=== PATIENT | male | born 1930 | race Asian ===

== ENCOUNTER 2018-09-03 07:44 | Inpatient (IN) | payer MEDICARE, BC ==
[~2018-09-03] VITALS: Ht 160 cm; Wt 66.7 kg
[2018-09-03] MEDS: ACETYLCYSTEINE 100MG/ML 10% VIAL 4ML INH SCH ×2 (00:23→14:00)
[2018-09-03 08:49] LABS: HEMATOCRIT. 34.9 % (42.0-52.0); HEMOGLOBIN. 11.9 g/dL (14.0-18.0); MEAN CORPUSCULAR HEMOGLOBIN 33.6 pg (28.0-32.0); MEAN CORPUSCULAR VOLUME 98.8 fL (80.0-94.0); MEAN PLATELET VOLUME 7.7 fl (7.4-10.4); PLATELET 293 x1000/uL (130-400); RED BLOOD CELL COUNT 3.54 mill/uL (4.7-6.1); RED CELL DISTRIBUTION WIDTH 20.6 % (11.6-14.6)
[2018-09-03 09:45] LABS: PLATELET ESTIMATE NORMAL
[2018-09-03 09:47] LABS: CHLORIDE 89 mEq/L (98-107)
[2018-09-03] MEDS ORDERED: SODIUM CHLORIDE 0.9% 1000ML BAG (SEPSIS BOLUS) IV ONE (10:45)
[2018-09-03] MEDS ORDERED: LEVOFLOXACIN 750MG PREMIX 150 ML IV ONE (10:45)
[2018-09-03] MEDS ORDERED: PIPERACILLIN/TAZ 3.375G PREMIX 50 ML IV SCH (12:45)
[2018-09-03] MEDS: IPRATROPIUM BROMIDE (0.02%) 0.5MG/2.5ML NEB HHN SCH ×2 (12:45→21:38)
[2018-09-03] MEDS ORDERED: PIPERACILLIN/TAZ 3.375G PREMIX 50 ML IV NR (13:00)
[2018-09-03 13:23] LABS: BG BASE EXCESS 0.8 mmol/L (-2.0-2.0); BG BILEVEL POS AIRWAY PRESSURE 15/5; BG CARBOXYHEMOGLOBIN 0.2 % (0.5-1.5); BG DEOXYHEMOGLOBIN 2.5 % (0.0-5.0); BG FRACTION INSPIRED OXYGEN 70; BG HCO3 ACT 25.1 mmol/L (22.0-26.0); BG METHEMOGLOBIN 0.3 % (0.0-1.5); BG OXYGEN SATURATION 97.5 % (92.0-98.5); BG PCO2 39.1 mmHg (35.0-45.0); BG PH 7.426 (7.350-7.450); BG PO2 114.8 mmHg (75.0-100.0); BG SAMPLE SITE LEFT BRACHIAL; BG TOTAL HEMOGLOBIN 11.1 g/dL (12.0-18.0); BG VENT MODE MASK - BIPAP; BG VENT RATE 18 set
[2018-09-03] MEDS ORDERED: ACETAMINOPHEN 325MG TABLET PO ONE (14:00)
[2018-09-03] MEDS ORDERED: IOHEXOL-350 100 ML BOTTLE ONE (14:59)
[2018-09-03 16:13] LABS: CLARITY URINE CLEAR (CLEAR); COLOR URINE YELLOW (YELLOW); KETONES URINE NEGATIVE (NEGATIVE); LEUKOCYTE ESTERASE URINE NEGATIVE (NEGATIVE); NITRITE URINE NEGATIVE (NEGATIVE); OCCULT BLOOD URINE 1+ (NEGATIVE); PROTEIN URINE 1+ (NEGATIVE); SPECIFIC GRAVITY URINE 1.056 (1.005-1.030)
[2018-09-03 16:26] LABS: INR 1.3; PROTHROMBIN TIME 12.7 sec (9.1-11.1)
[2018-09-03] MEDS ORDERED: ONDANSETRON HCL 4MG/2ML INJ IV PRN (17:15)
[2018-09-03] MEDS ORDERED: DOCUSATE SODIUM 100MG CAPSULE PO PRN (17:15)
[2018-09-03] MEDS ORDERED: IPRATROPIUM/ALBUTEROL 0.5-3(2.5)MG/3ML NEB INH PRN (17:15)
[2018-09-03] MEDS ORDERED: LORAZEPAM 0.5MG TABLET PO PRN (17:15)
[2018-09-03] MEDS ORDERED: CLONIDINE 0.1MG TABLET PO PRN (17:15)
[2018-09-03] MEDS ORDERED: HYDROCODONE/ACETAMINOPHEN 5/325MG TABLET PO PRN (17:15)
[2018-09-03] MEDS: SODIUM CHLORIDE 0.9% 1,000 ML IV SCH (17:53)
[2018-09-03] MEDS ORDERED: POTASSIUM CHLORIDE INJ 40 MEQ in DEXT 5% WATER 250 ML IV NR (18:00)
[2018-09-03 18:27] LABS: VITAMIN B12 SERUM 990 pg/mL (211-911)
[2018-09-03 18:30] LABS: PHOSPHORUS 2.9 mg/dL (2.5-4.9)
[2018-09-03 18:38] LABS: FOLIC ACID (FOLATE) SERUM > 20.00 ng/mL (>5.38)
[2018-09-03 19:21] LABS: FERRITIN 1569 ng/mL (22-322)
[2018-09-03] MEDS ORDERED: MIDODRINE HCL 5MG TABLET PO NR (20:00)
[2018-09-04] VITALS (24 sets, daily range): BP systolic 63–150; BP diastolic 30–104
[2018-09-04] MEDS: IPRATROPIUM BROMIDE (0.02%) 0.5MG/2.5ML NEB HHN SCH ×5 (00:16→20:16)
[2018-09-04] MEDS ORDERED: MORPHINE SULFATE 4 MG/ML CPJ (NOT FOR IM USE) IV PRN (00:45)
[2018-09-04] MEDS: LORAZEPAM 2MG/ML CPJ IV PRN ×2 (02:15→06:33)
[2018-09-04] MEDS: ACETAMINOPHEN 325MG TABLET PO PRN ×2 (04:06→12:51)
[2018-09-04] MEDS ORDERED: PIPERACILLIN/TAZ 3.375G PREMIX 50 ML IV NR (05:00)
[2018-09-04] MEDS ORDERED: MIDODRINE HCL 5MG TABLET PO NR (06:00)
[2018-09-04 06:42] LABS: HEMATOCRIT. 25.5 % (42.0-52.0); HEMOGLOBIN. 8.5 g/dL (14.0-18.0); MEAN CORPUSCULAR HEMOGLOBIN 33.1 pg (28.0-32.0); MEAN CORPUSCULAR VOLUME 99.2 fL (80.0-94.0); MEAN PLATELET VOLUME 6.7 fl (7.4-10.4); PLATELET 127 x1000/uL (130-400); RED BLOOD CELL COUNT 2.57 mill/uL (4.7-6.1); RED CELL DISTRIBUTION WIDTH 20.5 % (11.6-14.6)
[2018-09-04 06:49] LABS: CHLORIDE 105 mEq/L (98-107)
[2018-09-04 07:32] LABS: PLATELET ESTIMATE SLIGHTLY DECREASED
[2018-09-04] MEDS ORDERED: MIDODRINE HCL 5MG TABLET PO SCH (09:00)
[2018-09-04] MEDS ORDERED: PHENYLEPHRINE 40 MG in DEXT 5% WATER 246 ML IV PRN (11:30)
[2018-09-04] MEDS ORDERED: LORAZEPAM 2MG/ML CPJ IV ONE (12:00)
[2018-09-04 12:22] LABS: BG BASE EXCESS -5.9 mmol/L (-2.0-2.0); BG CARBOXYHEMOGLOBIN 0.5 % (0.5-1.5); BG HCO3 ACT 19.9 mmol/L (22.0-26.0); BG METHEMOGLOBIN 0.3 % (0.0-1.5); BG OXYHEMOGLOBIN 98.2 % (94.0-97.0); BG PCO2 40.5 mmHg (35.0-45.0); BG PO2 283.4 mmHg (75.0-100.0); BG SAMPLE SITE RIGHT BRACHIAL; BG TIDAL VOLUME(mL) 500 mL; BG TOTAL HEMOGLOBIN 10.4 g/dL (12.0-18.0); BG VENT MODE VENT - A/C; BG VENT RATE 16 set
[2018-09-04] MEDS ORDERED: LIDOCAINE HCL 1% 20ML VIAL (Pyxis) INJ ONE (13:33)
[2018-09-04] MEDS ORDERED: VECURONIUM BROMIDE 10 MG/VIAL IV ONE (14:07)
[2018-09-04] MEDS ORDERED: SODIUM CHLORIDE 0.9% 10ML VIAL ONE (14:07)
[2018-09-04] MEDS ORDERED: SUCCINYLCHOLINE CHLORIDE 200MG/10ML IV ONE (14:07)
[2018-09-04] MEDS ORDERED: ETOMIDATE 2MG/ML 10ML VIAL IV ONE (14:07)
[2018-09-04] MEDS ORDERED: MEROPENEM 1 GM XX SCH (14:15)
[2018-09-04] MEDS: PHENYLEPHRINE 40 MG in DEXT 5% WATER 246 ML IV PRN ×3 (15:00→19:25)
[2018-09-04] MEDS: PROPOFOL 10MG/ML 100ML 100 ML IV PRN ×2 (16:45→19:27)
[2018-09-04] MEDS: MIDODRINE HCL 5MG TABLET PO SCH (18:30)
[2018-09-04] MEDS ORDERED: VANCOMYCIN 1250MG in DEXTROSE 5% WATER 250ML IV NR (20:30)
[2018-09-04] MEDS ORDERED: PHENYLEPHRINE 80 MG in DEXT 5% WATER 492 ML IV STA (21:47)
[2018-09-04] MEDS: SODIUM CHLORIDE 0.9% 1,000 ML IV SCH (22:24)
[2018-09-04] MEDS: MEROPENEM 1000MG in NORMAL SALINE 100ML IV SCH (22:27)
[2018-09-05] VITALS (121 sets, daily range): BP systolic 63–165; BP diastolic 18–86
[2018-09-05] MEDS: IPRATROPIUM BROMIDE (0.02%) 0.5MG/2.5ML NEB HHN SCH ×7 (00:11→23:59)
[2018-09-05] MEDS: ACETYLCYSTEINE 100MG/ML 10% VIAL 4ML INH SCH ×3 (00:12→16:30)
[2018-09-05] MEDS: PHENYLEPHRINE 80 MG in DEXT 5% WATER 492 ML IV PRN ×3 (00:48→11:09)
[2018-09-05] MEDS: PROPOFOL 10MG/ML 100ML 100 ML IV PRN (04:03)
[2018-09-05] MEDS: MEROPENEM 1000MG in NORMAL SALINE 100ML IV SCH ×3 (06:00→22:00)
[2018-09-05 06:16] LABS: HEMATOCRIT. 25.7 % (42.0-52.0); HEMOGLOBIN. 8.6 g/dL (14.0-18.0); MEAN CORPUSCULAR HEMOGLOBIN 33.5 pg (28.0-32.0); MEAN CORPUSCULAR VOLUME 99.6 fL (80.0-94.0); PLATELET 122 x1000/uL (130-400); RED BLOOD CELL COUNT 2.58 mill/uL (4.7-6.1)
[2018-09-05 08:20] LABS: BG BASE EXCESS -6.5 mmol/L (-2.0-2.0); BG CARBOXYHEMOGLOBIN 0.3 % (0.5-1.5); BG DEOXYHEMOGLOBIN 6.2 % (0.0-5.0); BG FRACTION INSPIRED OXYGEN 60; BG HCO3 ACT 18.5 mmol/L (22.0-26.0); BG METHEMOGLOBIN 0.3 % (0.0-1.5); BG OXYGEN SATURATION 93.8 % (92.0-98.5); BG OXYHEMOGLOBIN 93.2 % (94.0-97.0); BG PCO2 34.9 mmHg (35.0-45.0); BG PH 7.343 (7.350-7.450); BG PO2 73.6 mmHg (75.0-100.0); BG SAMPLE SITE RIGHT BRACHIAL; BG TIDAL VOLUME(mL) 500 mL; BG TOTAL HEMOGLOBIN 10.2 g/dL (12.0-18.0); BG VENT MODE VENT - A/C; BG VENT RATE 16 set
[2018-09-05 08:23] LABS: PLATELET ESTIMATE SLIGHTLY DECREASED
[2018-09-05] MEDS: NOREPINEPHRINE 32 MG in DEXT 5% WATER 468 ML IV PRN ×2 (08:30→09:07)
[2018-09-05] MEDS: PANTOPRAZOLE SODIUM 40 MG/VIAL IV SCH (09:52)
[2018-09-05] MEDS: SODIUM CHLORIDE 0.9% 1,000 ML IV SCH (09:53)
[2018-09-05] MEDS: ACETAMINOPHEN 325MG TABLET PO PRN (12:04)
[2018-09-05] MEDS ORDERED: VANCOMYCIN 750 MG PREMIX 150 ML IV SCH (13:00)
[2018-09-05] MEDS ORDERED: PROPOFOL 10MG/ML 100ML 100 ML IV PRN (17:15)
[2018-09-06] VITALS (72 sets, daily range): BP systolic 69–171; BP diastolic 15–112
[2018-09-06] MEDS: IPRATROPIUM BROMIDE (0.02%) 0.5MG/2.5ML NEB HHN SCH ×5 (04:12→20:23)
[2018-09-06] MEDS: SODIUM CHLORIDE 0.9% 1,000 ML IV SCH ×2 (05:02→21:27)
[2018-09-06] MEDS: MEROPENEM 1000MG in NORMAL SALINE 100ML IV SCH (06:32)
[2018-09-06 06:58] LABS: HEMATOCRIT. 27.1 % (42.0-52.0); MEAN CORPUSCULAR HEMOGLOBIN 33.1 pg (28.0-32.0); MEAN CORPUSCULAR VOLUME 99.3 fL (80.0-94.0); MEAN PLATELET VOLUME 7.9 fl (7.4-10.4); PLATELET 62 x1000/uL (130-400); RED BLOOD CELL COUNT 2.73 mill/uL (4.7-6.1); RED CELL DISTRIBUTION WIDTH 20.8 % (11.6-14.6)
[2018-09-06 07:39] LABS: PLATELET ESTIMATE DECREASED
[2018-09-06] MEDS ORDERED: PROPOFOL 10MG/ML 100ML 100 ML IV PRN (08:30)
[2018-09-06 08:53] LABS: BG CARBOXYHEMOGLOBIN 0.5 % (0.5-1.5); BG DEOXYHEMOGLOBIN 7.5 % (0.0-5.0); BG FRACTION INSPIRED OXYGEN 40; BG HCO3 ACT 16.1 mmol/L (22.0-26.0); BG METHEMOGLOBIN 0.3 % (0.0-1.5); BG OXYGEN SATURATION 92.4 % (92.0-98.5); BG OXYHEMOGLOBIN 91.7 % (94.0-97.0); BG PCO2 28.1 mmHg (35.0-45.0); BG PH 7.376 (7.350-7.450); BG PO2 68.9 mmHg (75.0-100.0); BG SAMPLE SITE LEFT RADIAL; BG TIDAL VOLUME(mL) 500 mL; BG TOTAL HEMOGLOBIN 9.4 g/dL (12.0-18.0); BG VENT MODE VENT - A/C; BG VENT RATE 16 set
[2018-09-06] MEDS ORDERED: VANCOMYCIN 1 G PREMIX 200 ML IV SCH (09:00)
[2018-09-06] MEDS: ACETYLCYSTEINE 100MG/ML 10% VIAL 4ML INH SCH ×3 (09:05→15:53)
[2018-09-06] MEDS: PANTOPRAZOLE SODIUM 40 MG/VIAL IV SCH (10:38)
[2018-09-06] MEDS: MIDODRINE HCL 5MG TABLET PO SCH ×3 (10:38→17:19)
[2018-09-06] MEDS ORDERED: ALBUMIN HUMAN 25GM/100ML (25%) IV NR (13:15)
[2018-09-06] MEDS: PHENYLEPHRINE 80 MG in DEXT 5% WATER 492 ML IV PRN ×2 (14:46→21:26)
[2018-09-06 15:35] LABS: CREATINE KINASE 1264 IU/L (39-308)
[2018-09-06] MEDS: MEROPENEM 500MG in NORMAL SALINE 50ML IV SCH (17:19)
[2018-09-06] MEDS ORDERED: DIGOXIN 500MCG/2ML AMP ONE (18:56)
[2018-09-06] MEDS ORDERED: DIGOXIN 500MCG/2ML AMP IV NR (19:00)
[2018-09-06] MEDS ORDERED: AMIODARONE HCL 200 MG TABLET NG NR (19:00)
[2018-09-06] MEDS ORDERED: AMIODARONE HCL 150 MG in DEXT 5% WATER 100 ML IV NR (21:30)
[2018-09-06] MEDS: DIGOXIN 500MCG/2ML AMP IV SCH (22:43)
[2018-09-07] VITALS (96 sets, daily range): BP systolic 78–171; BP diastolic 42–83
[2018-09-07] MEDS: IPRATROPIUM BROMIDE (0.02%) 0.5MG/2.5ML NEB HHN SCH ×6 (00:14→20:32)
[2018-09-07] MEDS: ACETYLCYSTEINE 100MG/ML 10% VIAL 4ML INH SCH ×4 (00:15→16:34)
[2018-09-07 01:53] LABS: CLARITY URINE CLOUDY (CLEAR); COLOR URINE DARK YELLOW (YELLOW); KETONES URINE NEGATIVE (NEGATIVE); LEUKOCYTE ESTERASE URINE NEGATIVE (NEGATIVE); NITRITE URINE NEGATIVE (NEGATIVE); OCCULT BLOOD URINE 2+ (NEGATIVE); PH URINE 5.5 (4.5-8.0); PROTEIN URINE 2+ (NEGATIVE); SPECIFIC GRAVITY URINE 1.015 (1.005-1.030)
[2018-09-07] MEDS: DIGOXIN 500MCG/2ML AMP IV SCH (03:44)
[2018-09-07] MEDS: AMIODARONE HCL 200 MG TABLET NG SCH ×3 (03:44→18:50)
[2018-09-07] MEDS: MEROPENEM 500MG in NORMAL SALINE 50ML IV SCH ×2 (05:37→17:14)
[2018-09-07] MEDS: PHENYLEPHRINE 80 MG in DEXT 5% WATER 492 ML IV PRN (05:38)
[2018-09-07 06:50] LABS: PHOSPHORUS 5.1 mg/dL (2.5-4.9)
[2018-09-07 06:58] LABS: HEMATOCRIT. 29.1 % (42.0-52.0); HEMOGLOBIN. 9.8 g/dL (14.0-18.0); MEAN CORPUSCULAR HEMOGLOBIN 33.5 pg (28.0-32.0); MEAN PLATELET VOLUME 6.9 fl (7.4-10.4); RED BLOOD CELL COUNT 2.91 mill/uL (4.7-6.1); RED CELL DISTRIBUTION WIDTH 21.1 % (11.6-14.6)
[2018-09-07 07:42] LABS: PLATELET 37 x1000/uL (130-400)
[2018-09-07] MEDS ORDERED: NOREPINEPHRINE 32 MG in SODIUM CHLORIDE 0.9% 468 ML IV PRN (08:15)
[2018-09-07] MEDS ORDERED: PROPOFOL 10MG/ML 100ML 100 ML IV PRN (08:15)
[2018-09-07 08:41] LABS: BG BASE EXCESS -10.9 mmol/L (-2.0-2.0); BG CARBOXYHEMOGLOBIN 0.5 % (0.5-1.5); BG DEOXYHEMOGLOBIN 6.8 % (0.0-5.0); BG FRACTION INSPIRED OXYGEN 40; BG HCO3 ACT 15.8 mmol/L (22.0-26.0); BG METHEMOGLOBIN 0.2 % (0.0-1.5); BG OXYGEN SATURATION 93.2 % (92.0-98.5); BG OXYHEMOGLOBIN 92.5 % (94.0-97.0); BG PCO2 38.2 mmHg (35.0-45.0); BG PH 7.234 (7.350-7.450); BG PO2 78.9 mmHg (75.0-100.0); BG SAMPLE SITE LEFT RADIAL; BG TIDAL VOLUME(mL) 500 mL; BG VENT MODE VENT - A/C; BG VENT RATE 16 set
[2018-09-07] MEDS: PANTOPRAZOLE SODIUM 40 MG/VIAL IV SCH (08:58)
[2018-09-07] MEDS: MIDODRINE HCL 5MG TABLET PO SCH ×3 (08:58→17:14)
[2018-09-07] MEDS ORDERED: SODIUM CHLORIDE 3% 500 ML IV NR (09:00)
[2018-09-07] MEDS ORDERED: MAGNESIUM 4 G PREMIX 100 ML IV NR (09:00)
[2018-09-07] MEDS ORDERED: SODIUM BICARBONATE 8.4% 1 MEQ/ML 50ML SYR IV NR (09:15)
[2018-09-07 09:42] LABS: PLATELET ESTIMATE MARKEDLY DECREASED
[2018-09-07] MEDS: PHENYLEPHRINE 80 MG in SODIUM CHLORIDE 0.9% 492 ML IV PRN ×2 (10:32→18:16)
[2018-09-07] MEDS: DIGOXIN 125MCG TABLET PO SCH (17:14)
[2018-09-08] VITALS (100 sets, daily range): BP systolic 104–156; BP diastolic 35–76
[2018-09-08] MEDS: IPRATROPIUM BROMIDE (0.02%) 0.5MG/2.5ML NEB HHN SCH ×7 (00:46→23:51)
[2018-09-08] MEDS: SODIUM CHLORIDE 0.9% 1,000 ML IV SCH ×3 (01:50→13:20)
[2018-09-08] MEDS: AMIODARONE HCL 200 MG TABLET NG SCH ×3 (02:01→18:38)
[2018-09-08] MEDS: PHENYLEPHRINE 80 MG in SODIUM CHLORIDE 0.9% 492 ML IV PRN ×3 (02:02→16:53)
[2018-09-08] MEDS ORDERED: PROPOFOL 10MG/ML 100ML 100 ML IV PRN (05:00)
[2018-09-08] MEDS: MEROPENEM 500MG in NORMAL SALINE 50ML IV SCH ×2 (05:18→16:58)
[2018-09-08 05:36] LABS: HEMATOCRIT. 26.5 % (42.0-52.0); HEMOGLOBIN. 8.9 g/dL (14.0-18.0); MEAN CORPUSCULAR HEMOGLOBIN 33.2 pg (28.0-32.0); MEAN CORPUSCULAR VOLUME 99.1 fL (80.0-94.0); MEAN PLATELET VOLUME 7.3 fl (7.4-10.4); RED BLOOD CELL COUNT 2.67 mill/uL (4.7-6.1); RED CELL DISTRIBUTION WIDTH 21.1 % (11.6-14.6)
[2018-09-08 05:49] LABS: INR 1.1; PROTHROMBIN TIME 11.5 sec (9.1-11.1)
[2018-09-08 05:50] LABS: PHOSPHORUS 4.8 mg/dL (2.5-4.9)
[2018-09-08] MEDS: ACETYLCYSTEINE 100MG/ML 10% VIAL 4ML INH SCH ×3 (06:00→23:51)
[2018-09-08 06:05] LABS: PLATELET 20 x1000/uL (130-400)
[2018-09-08] MEDS: MIDODRINE HCL 5MG TABLET PO SCH ×3 (08:34→17:00)
[2018-09-08] MEDS: PANTOPRAZOLE SODIUM 40 MG/VIAL IV SCH (08:34)
[2018-09-08 09:11] LABS: BG BASE EXCESS -9.2 mmol/L (-2.0-2.0); BG CARBOXYHEMOGLOBIN 0.3 % (0.5-1.5); BG DEOXYHEMOGLOBIN 5.8 % (0.0-5.0); BG FRACTION INSPIRED OXYGEN 40; BG HCO3 ACT 16.4 mmol/L (22.0-26.0); BG METHEMOGLOBIN 1.3 % (0.0-1.5); BG OXYGEN SATURATION 94.1 % (92.0-98.5); BG OXYHEMOGLOBIN 92.6 % (94.0-97.0); BG PCO2 34.7 mmHg (35.0-45.0); BG PH 7.293 (7.350-7.450); BG PO2 84.7 mmHg (75.0-100.0); BG SAMPLE SITE RIGHT RADIAL; BG TIDAL VOLUME(mL) 500 mL; BG TOTAL HEMOGLOBIN 8.8 g/dL (12.0-18.0); BG VENT MODE VENT - A/C; BG VENT RATE 20 set
[2018-09-08] MEDS ORDERED: LORAZEPAM 2MG/ML CPJ IV PRN (10:30)
[2018-09-08 12:13] LABS: PLATELET ESTIMATE MARKEDLY DECREASED
[2018-09-08] MEDS: DIGOXIN 125MCG TABLET PO SCH (17:00)
[2018-09-08] MEDS: CLINDAMYCIN 600 MG in DEXTROSE 5% WATER 50 ML IV SCH (21:10)
[2018-09-08] MEDS: FAMOTIDINE 20MG/2ML VIAL IV SCH (21:10)
[2018-09-09] VITALS (97 sets, daily range): BP systolic 91–146; BP diastolic 31–92
[2018-09-09] MEDS: PHENYLEPHRINE 80 MG in SODIUM CHLORIDE 0.9% 492 ML IV PRN (00:42)
[2018-09-09] MEDS: AMIODARONE HCL 200 MG TABLET NG SCH ×3 (02:31→21:02)
[2018-09-09] MEDS: IPRATROPIUM BROMIDE (0.02%) 0.5MG/2.5ML NEB HHN SCH ×4 (03:47→20:15)
[2018-09-09] MEDS: CLINDAMYCIN 600 MG in DEXTROSE 5% WATER 50 ML IV SCH ×3 (04:40→21:02)
[2018-09-09 05:05] LABS: BG BASE EXCESS -10.4 mmol/L (-2.0-2.0); BG CARBOXYHEMOGLOBIN 0.5 % (0.5-1.5); BG DEOXYHEMOGLOBIN 5.8 % (0.0-5.0); BG FRACTION INSPIRED OXYGEN 40; BG HCO3 ACT 16.1 mmol/L (22.0-26.0); BG METHEMOGLOBIN 0.3 % (0.0-1.5); BG OXYGEN SATURATION 94.2 % (92.0-98.5); BG OXYHEMOGLOBIN 93.4 % (94.0-97.0); BG PH 7.244 (7.350-7.450); BG PO2 84.5 mmHg (75.0-100.0); BG SAMPLE SITE RIGHT RADIAL; BG TIDAL VOLUME(mL) 500 mL; BG TOTAL HEMOGLOBIN 8.4 g/dL (12.0-18.0); BG VENT MODE VENT - A/C; BG VENT RATE 24 set
[2018-09-09] MEDS ORDERED: SODIUM BICARBONATE 8.4% 1 MEQ/ML 50ML SYR IV ONE (05:30)
[2018-09-09] MEDS ORDERED: SODIUM BICARBONATE 8.4% 1 MEQ/ML 50ML SYR IV SCH (05:45)
[2018-09-09 05:49] LABS: PHOSPHORUS 4.8 mg/dL (2.5-4.9)
[2018-09-09] MEDS: ACETYLCYSTEINE 100MG/ML 10% VIAL 4ML INH SCH ×2 (07:18→15:20)
[2018-09-09] MEDS: IPRATROPIUM/ALBUTEROL 0.5-3(2.5)MG/3ML NEB HHN PRN (07:18)
[2018-09-09 08:36] LABS: HEMATOCRIT. 23.8 % (42.0-52.0); HEMOGLOBIN. 7.9 g/dL (14.0-18.0); MEAN CORPUSCULAR HEMOGLOBIN 32.5 pg (28.0-32.0); MEAN CORPUSCULAR VOLUME 98.5 fL (80.0-94.0); RED BLOOD CELL COUNT 2.41 mill/uL (4.7-6.1); RED CELL DISTRIBUTION WIDTH 20.7 % (11.6-14.6)
[2018-09-09 08:42] LABS: BG BASE EXCESS -8.8 mmol/L (-2.0-2.0); BG CARBOXYHEMOGLOBIN 0.9 % (0.5-1.5); BG DEOXYHEMOGLOBIN 4.9 % (0.0-5.0); BG FRACTION INSPIRED OXYGEN 40; BG HCO3 ACT 16.8 mmol/L (22.0-26.0); BG METHEMOGLOBIN 0.3 % (0.0-1.5); BG OXYHEMOGLOBIN 93.9 % (94.0-97.0); BG PCO2 34.7 mmHg (35.0-45.0); BG PH 7.302 (7.350-7.450); BG PO2 85.8 mmHg (75.0-100.0); BG SAMPLE SITE LEFT BRACHIAL; BG TIDAL VOLUME(mL) 500 mL; BG TOTAL HEMOGLOBIN 8.6 g/dL (12.0-18.0); BG VENT MODE VENT - A/C; BG VENT RATE 28 set
[2018-09-09] MEDS: MIDODRINE HCL 5MG TABLET PO SCH ×3 (09:17→17:49)
[2018-09-09 10:51] LABS: PLATELET ESTIMATE MARKEDLY DECREASED
[2018-09-09 10:53] LABS: MEAN PLATELET VOLUME 8.8 fl (7.4-10.4); PLATELET 18 x1000/uL (130-400)
[2018-09-09] MEDS: CITRIC ACID/SODIUM CITRATE SOLN 30ML UDC PO SCH ×2 (13:01→17:49)
[2018-09-09] MEDS: DIGOXIN 125MCG TABLET PO SCH (17:48)
[2018-09-09 20:43] LABS: T4 FREE 0.94 ng/dL (0.76-1.46)
[2018-09-09] MEDS: FAMOTIDINE 20MG/2ML VIAL IV SCH (21:02)
[2018-09-09 21:11] LABS: VITAMIN B12 SERUM >2000 pg/mL pg/mL (211-911)
[2018-09-10] VITALS (88 sets, daily range): BP systolic 76–151; BP diastolic 36–93
[2018-09-10] MEDS: IPRATROPIUM BROMIDE (0.02%) 0.5MG/2.5ML NEB HHN SCH ×6 (00:07→20:48)
[2018-09-10] MEDS: AMIODARONE HCL 200 MG TABLET NG SCH ×4 (03:15→19:00)
[2018-09-10] MEDS: CLINDAMYCIN 600 MG in DEXTROSE 5% WATER 50 ML IV SCH ×3 (05:19→21:19)
[2018-09-10 05:37] LABS: BG BASE EXCESS -9.5 mmol/L (-2.0-2.0); BG FRACTION INSPIRED OXYGEN 40; BG HCO3 ACT 16.7 mmol/L (22.0-26.0); BG METHEMOGLOBIN 0.3 % (0.0-1.5); BG OXYGEN SATURATION 90.9 % (92.0-98.5); BG OXYHEMOGLOBIN 89.7 % (94.0-97.0); BG PCO2 37.4 mmHg (35.0-45.0); BG PH 7.268 (7.350-7.450); BG SAMPLE SITE LEFT RADIAL; BG TIDAL VOLUME(mL) 500 mL; BG VENT MODE VENT - A/C; BG VENT RATE 28 set
[2018-09-10 05:51] LABS: HEMOGLOBIN. 7.3 g/dL (14.0-18.0); MEAN CORPUSCULAR VOLUME 99.2 fL (80.0-94.0); MEAN PLATELET VOLUME 9.3 fl (7.4-10.4); RED BLOOD CELL COUNT 2.21 mill/uL (4.7-6.1); RED CELL DISTRIBUTION WIDTH 21.5 % (11.6-14.6)
[2018-09-10 06:07] LABS: PLATELET 15 x1000/uL (130-400)
[2018-09-10 08:00] LABS: PLATELET ESTIMATE MARKEDLY DECREASED
[2018-09-10] MEDS: CITRIC ACID/SODIUM CITRATE SOLN 30ML UDC PO SCH ×3 (09:29→19:08)
[2018-09-10] MEDS: MIDODRINE HCL 5MG TABLET PO SCH ×3 (09:29→19:00)
[2018-09-10 11:03] LABS: BG BASE EXCESS -9.8 mmol/L (-2.0-2.0); BG CARBOXYHEMOGLOBIN 0.8 % (0.5-1.5); BG DEOXYHEMOGLOBIN 5.8 % (0.0-5.0); BG FRACTION INSPIRED OXYGEN 60; BG HCO3 ACT 17.9 mmol/L (22.0-26.0); BG METHEMOGLOBIN 0.2 % (0.0-1.5); BG OXYGEN SATURATION 94.1 % (92.0-98.5); BG OXYHEMOGLOBIN 93.2 % (94.0-97.0); BG PCO2 48.7 mmHg (35.0-45.0); BG PH 7.182 (7.350-7.450); BG SAMPLE SITE LEFT RADIAL; BG TIDAL VOLUME(mL) 500 mL; BG TOTAL HEMOGLOBIN 7.6 g/dL (12.0-18.0); BG VENT MODE VENT - A/C; BG VENT RATE 20 set
[2018-09-10] MEDS: PHENYLEPHRINE 80 MG in SODIUM CHLORIDE 0.9% 492 ML IV PRN (15:51)
[2018-09-10 19:26] LABS: HEMATOCRIT 21.5 % (42.0-52.0); HEMOGLOBIN 7.1 g/dL (14.0-18.0)
[2018-09-10] MEDS: MORPHINE SULFATE 100 MG in DEXT 5% WATER 90 ML IV PRN (20:23)
[2018-09-10] MEDS: FAMOTIDINE 20MG/2ML VIAL IV SCH (21:18)
[2018-09-11] VITALS (62 sets, daily range): BP systolic 80–135; BP diastolic 35–62
[2018-09-11] MEDS: IPRATROPIUM BROMIDE (0.02%) 0.5MG/2.5ML NEB HHN SCH ×5 (00:41→16:00)
[2018-09-11] MEDS: PHENYLEPHRINE 80 MG in SODIUM CHLORIDE 0.9% 492 ML IV PRN (03:42)
[2018-09-11] MEDS: CLINDAMYCIN 600 MG in DEXTROSE 5% WATER 50 ML IV SCH ×3 (05:37→20:33)
[2018-09-11 06:32] LABS: HEMATOCRIT. 21.5 % (42.0-52.0); HEMOGLOBIN. 7.2 g/dL (14.0-18.0); MEAN CORPUSCULAR HEMOGLOBIN 33.2 pg (28.0-32.0); MEAN CORPUSCULAR VOLUME 99.6 fL (80.0-94.0); MEAN PLATELET VOLUME 11.6 fl (7.4-10.4); RED BLOOD CELL COUNT 2.16 mill/uL (4.7-6.1); RED CELL DISTRIBUTION WIDTH 21.7 % (11.6-14.6)
[2018-09-11 08:20] LABS: NUCLEATED RED BLOOD CELLS 1 /100 WBC; PLATELET ESTIMATE MARKEDLY DECREASED
[2018-09-11] MEDS: AMIODARONE HCL 200 MG TABLET NG SCH ×2 (08:20→18:44)
[2018-09-11 08:22] LABS: PLATELET 22 x1000/uL (130-400)
[2018-09-11 08:29] LABS: BG CARBOXYHEMOGLOBIN 1.3 % (0.5-1.5); BG DEOXYHEMOGLOBIN 2.5 % (0.0-5.0); BG FRACTION INSPIRED OXYGEN 60; BG HCO3 ACT 18.6 mmol/L (22.0-26.0); BG METHEMOGLOBIN 0.3 % (0.0-1.5); BG OXYGEN SATURATION 97.5 % (92.0-98.5); BG OXYHEMOGLOBIN 95.9 % (94.0-97.0); BG PCO2 32.7 mmHg (35.0-45.0); BG PH 7.373 (7.350-7.450); BG PO2 123.6 mmHg (75.0-100.0); BG SAMPLE SITE LEFT RADIAL; BG TIDAL VOLUME(mL) 500 mL; BG TOTAL HEMOGLOBIN 6.9 g/dL (12.0-18.0); BG VENT MODE VENT - A/C; BG VENT RATE 30 set
[2018-09-11] MEDS: MIDODRINE HCL 5MG TABLET PO SCH ×3 (09:48→17:00)
[2018-09-11] MEDS: CITRIC ACID/SODIUM CITRATE SOLN 30ML UDC PO SCH ×3 (09:48→17:00)
[2018-09-11] MEDS: FAMOTIDINE 20MG/2ML VIAL IV SCH (20:33)
[2018-09-11] MEDS: IPRATROPIUM/ALBUTEROL 0.5-3(2.5)MG/3ML NEB HHN PRN (20:34)
[2018-09-12] VITALS (88 sets, daily range): BP systolic 72–140; BP diastolic 28–84
[2018-09-12] MEDS: PHENYLEPHRINE 80 MG in SODIUM CHLORIDE 0.9% 492 ML IV PRN ×2 (03:32→15:26)
[2018-09-12] MEDS: IPRATROPIUM BROMIDE (0.02%) 0.5MG/2.5ML NEB HHN SCH ×5 (04:16→20:11)
[2018-09-12] MEDS: CLINDAMYCIN 600 MG in DEXTROSE 5% WATER 50 ML IV SCH ×3 (06:00→21:01)
[2018-09-12 07:29] LABS: HEMATOCRIT. 21.8 % (42.0-52.0); HEMOGLOBIN. 7.4 g/dL (14.0-18.0); MEAN CORPUSCULAR HEMOGLOBIN 33.4 pg (28.0-32.0); MEAN PLATELET VOLUME 10.6 fl (7.4-10.4); RED BLOOD CELL COUNT 2.21 mill/uL (4.7-6.1); RED CELL DISTRIBUTION WIDTH 21.4 % (11.6-14.6)
[2018-09-12] MEDS: CITRIC ACID/SODIUM CITRATE SOLN 30ML UDC PO SCH ×3 (08:21→17:11)
[2018-09-12] MEDS: MIDODRINE HCL 5MG TABLET PO SCH ×3 (08:21→17:12)
[2018-09-12] MEDS: AMIODARONE HCL 200 MG TABLET NG SCH ×2 (08:21→17:12)
[2018-09-12] MEDS ORDERED: ALBUMIN HUMAN 25GM/100ML (25%) IV NR (09:00)
[2018-09-12 09:04] LABS: NUCLEATED RED BLOOD CELLS 1 /100 WBC
[2018-09-12 09:05] LABS: PLATELET ESTIMATE MARKEDLY DECREASED
[2018-09-12 09:07] LABS: PLATELET 39 x1000/uL (130-400)
[2018-09-12] MEDS: FAMOTIDINE 20MG/2ML VIAL IV SCH (21:00)
[2018-09-13] VITALS (41 sets, daily range): BP systolic 96–147; BP diastolic 35–97
[2018-09-13] MEDS: IPRATROPIUM BROMIDE (0.02%) 0.5MG/2.5ML NEB HHN SCH ×3 (00:07→07:30)
[2018-09-13] MEDS: PHENYLEPHRINE 80 MG in SODIUM CHLORIDE 0.9% 492 ML IV PRN ×2 (03:37→06:21)
[2018-09-13] MEDS: CLINDAMYCIN 600 MG in DEXTROSE 5% WATER 50 ML IV SCH (05:46)
[2018-09-13 06:06] LABS: MEAN CORPUSCULAR HEMOGLOBIN 33.6 pg (28.0-32.0); MEAN CORPUSCULAR VOLUME 99.9 fL (80.0-94.0); MEAN PLATELET VOLUME 10.3 fl (7.4-10.4); RED BLOOD CELL COUNT 1.87 mill/uL (4.7-6.1); RED CELL DISTRIBUTION WIDTH 21.4 % (11.6-14.6)
[2018-09-13 06:51] LABS: PHOSPHORUS 6.6 mg/dL (2.5-4.9)
[2018-09-13 06:57] LABS: HEMATOCRIT. 18.7 % (42.0-52.0); HEMOGLOBIN. 6.3 g/dL (14.0-18.0); PLATELET 31 x1000/uL (130-400)
[2018-09-13] MEDS: MIDODRINE HCL 5MG TABLET PO SCH (09:21)
[2018-09-13] MEDS: CITRIC ACID/SODIUM CITRATE SOLN 30ML UDC PO SCH (09:22)
[2018-09-13] MEDS: AMIODARONE HCL 200 MG TABLET NG SCH (09:22)
[2018-09-13] MEDS ORDERED: LORAZEPAM 2MG/ML CPJ IV PRN (09:45)
[2018-09-13] MEDS ORDERED: ATROPINE SULFATE 1% OPHTH 2ML SL PRN (09:45)
[2018-09-13 10:30] LABS: NUCLEATED RED BLOOD CELLS 10 /100 WBC; PLATELET ESTIMATE MARKEDLY DECREASED
[2018-09-13] MEDS: MORPHINE SULFATE 100 MG in DEXT 5% WATER 90 ML IV PRN (10:46)
== END 2018-09-13 12:07 | disposition expired | DRG 870 ==
LOC: ER 07:57 → CVICU 12:06 → EDBEDREQ 12:11 → CANRESERV 15:27 → EDRESERV 15:27 → ENRESERV 15:27 → EDBEDREQSVC 15:44 → CANRESERV 16:06 → EDRESERV 16:06 → ENRESERV 16:06 → CANRESERV 20:04 → ENRESERV 09-04 16:50
PROVIDERS: ADMIT Internal Medicine; ATTEND Internal Medicine
PROC: 5A09357 Assistance with Respiratory Ventilation, Less than 24 Consecutive Hours, Continuous Positive Airway Pressure (ICD-10-PCS; 2018-09-03)
PROC: 5A1955Z Respiratory Ventilation, Greater than 96 Consecutive Hours (ICD-10-PCS; principal; 2018-09-04)
PROC: 02HV33Z Insertion of Infusion Device into Superior Vena Cava, Percutaneous Approach (ICD-10-PCS; 2018-09-04)
PROC: B548ZZA Ultrasonography of Superior Vena Cava, Guidance (ICD-10-PCS; 2018-09-04)
PROC: 0W993ZZ Drainage of Right Pleural Cavity, Percutaneous Approach (ICD-10-PCS; 2018-09-04)
DX: A41.9 Sepsis, unspecified organism (principal); R65.21 Severe sepsis with septic shock; J18.1 Lobar pneumonia, unspecified organism; G92 Toxic encephalopathy; J96.01 Acute respiratory failure with hypoxia; N17.0 Acute kidney failure with tubular necrosis; E87.1 Hypo-osmolality and hyponatremia; J44.0 Chronic obstructive pulmonary disease with (acute) lower respiratory infection; C18.9 Malignant neoplasm of colon, unspecified; C23 Malignant neoplasm of gallbladder; E22.1 Hyperprolactinemia; E87.4 Mixed disorder of acid-base balance; I42.9 Cardiomyopathy, unspecified; I47.1 Supraventricular tachycardia; I50.20 Unspecified systolic (congestive) heart failure; Z99.11 Dependence on respirator [ventilator] status; E11.9 Type 2 diabetes mellitus without complications; E87.6 Hypokalemia; D53.9 Nutritional anemia, unspecified; D63.8 Anemia in other chronic diseases classified elsewhere; D69.6 Thrombocytopenia, unspecified; E83.42 Hypomagnesemia; I07.1 Rheumatic tricuspid insufficiency; I11.0 Hypertensive heart disease with heart failure; I25.10 Atherosclerotic heart disease of native coronary artery without angina pectoris; I27.20 Pulmonary hypertension, unspecified; I48.91 Unspecified atrial fibrillation; I49.3 Ventricular premature depolarization; N14.1 Nephropathy induced by other drugs, medicaments and biological substances; Z66 Do not resuscitate; Z78.1 Physical restraint status; Z79.84 Long term (current) use of oral hypoglycemic drugs; Z82.49 Family history of ischemic heart disease and other diseases of the circulatory system; Z83.3 Family history of diabetes mellitus; Z85.048 Personal history of other malignant neoplasm of rectum, rectosigmoid junction, and anus; Z91.19 Patient's noncompliance with other medical treatment and regimen; Z92.21 Personal history of antineoplastic chemotherapy; Z92.3 Personal history of irradiation; Z95.5 Presence of coronary angioplasty implant and graft; T50.8X5A Adverse effect of diagnostic agents, initial encounter; D89.9 Disorder involving the immune mechanism, unspecified; Y92.89 Other specified places as the place of occurrence of the external cause
CPT/HCPCS: 32555; 36415; 36569; 36600; 71045; 71275; 74018; 76770; 76937; 80048; 80061; 80202; 82040; 82140; 82375; 82533; 82550; 82607; 82728; 82746; 82805; 82962; 83036; 83540; 83550; 83605; 83615; 83735; 83880; 83935; 84100; 84134; 84145; 84439; 84443; 84478; 84481; 84484; 85014; 85018; 85362; 85384; 87116; 87804; 88108; 88312; 93005; 93306; 93970; 94003; 94640; 94660; 96374; 96375; 99291; A6261; C1725; C9113; J0282; J0330; J1160; J1956; J2060; J2185; J2270; J2370; J2543; J2704; J3370; J3475; J3480; J3490; J7030; J7040; J7050; J7060; J7608; P9047; Q9967